=== PATIENT | male | born 1950 | race Caucasian/White ===

== ENCOUNTER 2023-07-14 06:23 | Day surgery (SDC) | payer OTHER, SELFPAY ==
[2023-06-28 08:59] LABS: Hematocrit 38.5 % (39.0-52.0); Mean Corp Hgb Conc. 31.2 g/dL (33.0-37.0); Mean Corpuscular Hgb 25.2 pg (27.0-31.0); Mean Corpuscular Volume 80.7 fL (80.0-94.0); Platelet Count 194 10^3/uL (130-400); Red Blood Cell Count 4.77 10^6/uL (4.70-6.10); Red Cell Dist. Width 15.9 % (11.5-14.5); White Blood Cell Count 7.4 10^3/uL (4.8-10.8)
[2023-06-28 09:46] VITALS: BMI 36.6
[2023-06-28 10:01] LABS: Blood Urea Nitrogen 20 mg/dl (9-20); Calcium 8.6 mg/dl (8.4-10.2); Carbon Dioxide 27 mmol/L (22-30); Chloride 102 mmol/L (98-107); Estimated Creatinine Clearance 84 ml/min; Glucose 124 mg/dl (70-99); Potassium 3.9 mmol/L (3.5-5.1); Sodium 138 mmol/L (135-145); eGFR > 60.00
--- NOTE | 2023-07-01 12:22 | CM ---
Patient is scheduled for a laparoscopic repair paraesophageal hernia with fundoplication on 07/14/23. Spoke with patient prior to surgery via telephone to complete case management assessment and assess for discharge planning needs. Patient reports
that he lives with his in a two story home. There are no steps to enter and a flight of steps to the second floor. There is a powder room on the first floor. He currently functions independently and works director multimedia. He has no DME and has never
had VN services. He has a prescription plan and uses [facility] in [place].
He is in the process of changing PCPs.
Discussed discharge plans. Patient plans to return home at discharge. He states that he will have support from his when he goes home. He has no discharge planning concerns at this time.
[2023-07-14] VITALS (13 sets, daily range): BP systolic 107–134; BP diastolic 76–92; BMI 36.6
[2023-07-14] MEDS: TYLENOL 1000 MG PO (08:20)
[2023-07-14] MEDS: NORMOSOL-R 1000 IV ×2 (08:21→14:41)
--- NOTE | 2023-07-14 13:38 | W.IMMPOSTOP ---
Surgical Immed Post Op Note
-
Primary Surgeon: Gladis
Assisting Surgeon: ARIEL Copeland
Pre-op Diagnosis: Paraesophageal hernia
Post-op Diagnosis: Paraesophageal hernia
Procedure Performed: Laparoscopic PEH repair with fundoplication and EGD
Anesthesia Type: General
Specimen / Cultures: None
Estimated Blood Loss: 11 cc
Complications: None
Operative Findings:
1. Large type III hernia containing 80% of stomach
2. > 3 cm esophageal mobilization
3. Posterior crural closure with 0 silk x3
4. Loose floppy 2 cm Toupet fundoplication over 56 Fr Bougie
5. Bl vagi identified, no pleural violation
[2023-07-14] MEDS: OFIRMEV 100 IV ×2 (15:15→22:24)
--- NOTE | 2023-07-14 16:08 | PTCARENOTE ---
Patient received from PACU in bed; IVF infusing; Surgical site assessed with [employer]TER[employer] MEDICINE PRACTITIONER; Patient and spouse oriented to room and unit; Bed in lowest position, wheels locked; Call [place] within reach; Assessment ongoing
[2023-07-14] MEDS: LOPRESSOR 5 MG IV (19:54)
[2023-07-15] MEDS: LOPRESSOR 5 MG IV ×2 (00:11→04:11)
[2023-07-15] MEDS: NORMOSOL-R 1000 IV ×2 (01:15→10:06)
[2023-07-15] MEDS: NORMOSOL-R IV (01:22)
[2023-07-15 03:15] VITALS: BP 111/70
[2023-07-15] MEDS: OFIRMEV 100 IV ×2 (04:29→10:05)
[2023-07-15 06:37] LABS: Hematocrit 34.9 % (39.0-52.0); Hemoglobin 10.9 g/dL (13.0-18.0); Mean Corp Hgb Conc. 31.2 g/dL (33.0-37.0); Mean Corpuscular Hgb 25.6 pg (27.0-31.0); Mean Corpuscular Volume 81.9 fL (80.0-94.0); Mean Platelet Volume 11.6 fL (7.4-10.4); Platelet Count 173 10^3/uL (130-400); Red Blood Cell Count 4.26 10^6/uL (4.70-6.10); Red Cell Dist. Width 16.2 % (11.5-14.5); White Blood Cell Count 7.4 10^3/uL (4.8-10.8)
[2023-07-15 07:08] LABS: Blood Urea Nitrogen 17 mg/dl (9-20); Carbon Dioxide 27 mmol/L (22-30); Chloride 102 mmol/L (98-107); Estimated Creatinine Clearance 105 ml/min; Glucose 114 mg/dl (70-99); Potassium 4.2 mmol/L (3.5-5.1); Sodium 135 mmol/L (135-145); eGFR > 60.00
[2023-07-15 07:35] VITALS: BP 103/57
--- NOTE | 2023-07-15 08:34 | W.PN.GS2 ---
Today's Communication / Plan
-
-- Clears, ADAT to soft diet
-- Pain control: Tylenol, Toradol, Oxycodone, IV Dilaudid PRN
-- Maintain IVF for now given limited PO intake
-- Home Dilt (short acting), statin and anti-HTN medications ordered
-- Lovenox for DVT, hold home Xarelto for 72 hours post-op
-- DC pending dietary progression throughout the day
Assessment / Plan
-
Patient is a 73 yo M POD#1 s/p laparoscopic paraesophageal hernia repair with Toupet fundoplication and intraoperative EGD
Recovering well. No postoperative concerns.
-- Clears, ADAT to soft diet
-- Pain control: Tylenol, Toradol, Oxycodone, IV Dilaudid PRN
-- Maintain IVF for now given limited PO intake
-- Home Dilt (short acting), statin and anti-HTN medications ordered
-- OOB/ambulate
-- Lovenox for DVT
-- DC pending dietary progression throughout the day
Subjective Data
-
Date of Service: July 15, 2023
No complaints. Pain well controlled. No nausea or emesis. No reflux or dysphagia. No dizziness or lightheadedness. No fevers.
Objective Data
-
Intake and Output
07/14/23 07/15/23 07/16/23
06:59 06:59 06:59
Intake Total 580 / 580
Output Total 250 / 250
Balance 330 / 330
Intake:
IV fluids (Total) 380 / 380
Normosol 160 / 160
Offirmev 100 / 100
IV piggybacks 200 / 200
Output:
Urine, Dickinson 250 / 250
Other:
Number of approximated MODERATE 1
amounts of urine
Vital Signs
Temp Pulse Resp BP Pulse Ox
98.5 F 87 17 103/57 97
07/15/23 07:35 07/15/23 07:35 07/15/23 07:35 07/15/23 07:35 07/15/23 07:35
Lab Results
07/15/23 05:21
07/15/23 05:21
Calcium 8.0 mg/dl (8.4-10.2) L 07/15/23 05:21
Physical Exam
-
Gen: NAD
Abd: soft, NT, ND, incisions c/d/i - no erythema or drainage, mild ecchymosis developing at L lateral site
[2023-07-15] MEDS: LOPRESSOR IV ×2 (10:04→12:44)
[2023-07-15] MEDS: CARDIZEM 60 MG PO (10:04)
[2023-07-15 11:15] VITALS: BP 98/62
[2023-07-15 15:10] VITALS: BP 96/66
--- NOTE | 2023-07-15 16:31 | W.PN.SURGUPD ---
Surgical Update
Surgical Update
Tolerated liquid diet. Plans to order a soft food diet this evening. No nausea, vomiting, or dysphagia. No dizziness or lightheadedness. Making adequate urine. No chest pain or shortness of breath.
Patient stable and cleared for discharge pending tolerance of soft food diet. DC instructions finalized.
[2023-07-15] MEDS: CARDIZEM PO (16:34)
[2023-07-15 19:44] LABS: Hepatitis C Antibody Negative (Negative)
== END 2023-07-15 18:35 | disposition home or self-care (01) ==
LOC: SDS 06:23
PROVIDERS: ATTENDING PHYSICIAN Surgery; OTHER PHYSICIAN Internal Medicine; OTHER PHYSICIAN Internal Medicine Cardiovascular Disease
DX: K44.9 Diaphragmatic hernia without obstruction or gangrene (principal)
CPT/HCPCS: 43281; 43235; 36415; 71046; 80048; 85027; 86803

== ENCOUNTER → 2023-11-30 16:04 | Outpatient (REF) | payer OTHER, SELFPAY | LOC: HWRAD 16:04 | PROVIDERS: ATTENDING PHYSICIAN Nurse Practitioner | DX: R05.1 Acute cough (principal) | CPT/HCPCS: 71046 ==

== ENCOUNTER → 2023-12-03 08:31 | Outpatient (REF) | payer OTHER, SELFPAY | LOC: HWRAD 08:31 | PROVIDERS: ATTENDING PHYSICIAN Nurse Practitioner | DX: R91.1 Solitary pulmonary nodule (principal) | CPT/HCPCS: 71260; Q9967 ==

== ENCOUNTER → 2023-12-24 09:55 | Outpatient (REF) | payer OTHER, SELFPAY | LOC: HWRAD 09:55 | PROVIDERS: ATTENDING PHYSICIAN Family Medicine | DX: C91.10 Chronic lymphocytic leukemia of B-cell type not having achieved remission (principal) | CPT/HCPCS: 71046 ==

== ENCOUNTER 2024-09-29 07:15 | Outpatient (RCR) | payer OTHER, SELFPAY | END 2024-09-29 23:59 | disposition home or self-care (01) | LOC: RPT 07:15 | PROVIDERS: ATTENDING PHYSICIAN Podiatrist Foot & Ankle Surgery; FAMILY PHYSICIAN Internal Medicine | DX: I89.0 Lymphedema, not elsewhere classified (principal); G62.0 Drug-induced polyneuropathy; R53.0 Neoplastic (malignant) related fatigue; R26.81 Unsteadiness on feet; Z73.6 Limitation of activities due to disability; M62.81 Muscle weakness (generalized); R29.3 Abnormal posture; C91.10 Chronic lymphocytic leukemia of B-cell type not having achieved remission | CPT/HCPCS: 97140; 97163; 97530 ==

== ENCOUNTER 2024-11-09 10:07 | Outpatient (RCR) | payer OTHER, SELFPAY | END 2024-11-09 23:59 | disposition home or self-care (01) | LOC: RPT 10:07 | PROVIDERS: ATTENDING PHYSICIAN Podiatrist Foot & Ankle Surgery; FAMILY PHYSICIAN Internal Medicine | DX: I89.0 Lymphedema, not elsewhere classified (principal); G62.0 Drug-induced polyneuropathy; R53.0 Neoplastic (malignant) related fatigue; R26.81 Unsteadiness on feet; Z73.6 Limitation of activities due to disability; M62.81 Muscle weakness (generalized); R29.3 Abnormal posture; C91.10 Chronic lymphocytic leukemia of B-cell type not having achieved remission | CPT/HCPCS: 97110; 97112; 97140; 97530 ==

== ENCOUNTER 2024-12-07 15:04 | Outpatient (RCR) | payer OTHER, SELFPAY | END 2024-12-07 23:59 | disposition home or self-care (01) | LOC: RPT 15:04 | PROVIDERS: ATTENDING PHYSICIAN Podiatrist Foot & Ankle Surgery; FAMILY PHYSICIAN Internal Medicine | DX: I89.0 Lymphedema, not elsewhere classified (principal); G62.0 Drug-induced polyneuropathy; R53.0 Neoplastic (malignant) related fatigue; R26.81 Unsteadiness on feet; Z73.6 Limitation of activities due to disability; M62.81 Muscle weakness (generalized); R29.3 Abnormal posture; C91.10 Chronic lymphocytic leukemia of B-cell type not having achieved remission | CPT/HCPCS: 97110; 97112; 97530 ==

== ENCOUNTER 2025-01-05 13:29 | Outpatient (RCR) | payer OTHER, SELFPAY | END 2025-01-05 23:59 | disposition home or self-care (01) | LOC: RPT 13:29 | PROVIDERS: ATTENDING PHYSICIAN Podiatrist Foot & Ankle Surgery; FAMILY PHYSICIAN Internal Medicine | DX: I89.0 Lymphedema, not elsewhere classified (principal); G62.0 Drug-induced polyneuropathy; R53.0 Neoplastic (malignant) related fatigue; R26.81 Unsteadiness on feet; Z73.6 Limitation of activities due to disability; M62.81 Muscle weakness (generalized); R29.3 Abnormal posture; C91.10 Chronic lymphocytic leukemia of B-cell type not having achieved remission | CPT/HCPCS: 97110; 97112; 97530 ==

== ENCOUNTER 2025-01-25 07:20 | Outpatient (RCR) | payer OTHER, SELFPAY | END 2025-01-25 23:59 | disposition home or self-care (01) | LOC: RPT 07:20 | PROVIDERS: ATTENDING PHYSICIAN Podiatrist Foot & Ankle Surgery; FAMILY PHYSICIAN Internal Medicine | DX: I89.0 Lymphedema, not elsewhere classified (principal); G62.0 Drug-induced polyneuropathy; R53.0 Neoplastic (malignant) related fatigue; R26.81 Unsteadiness on feet; Z73.6 Limitation of activities due to disability; M62.81 Muscle weakness (generalized); R29.3 Abnormal posture; C91.10 Chronic lymphocytic leukemia of B-cell type not having achieved remission | CPT/HCPCS: 97110; 97112; 97530 ==

== ENCOUNTER 2025-04-06 13:35 | Outpatient (RCR) | payer OTHER, SELFPAY | END 2025-04-09 07:14 | disposition home or self-care (01) | LOC: RPT 13:35 | PROVIDERS: ATTENDING PHYSICIAN Podiatrist Foot & Ankle Surgery; FAMILY PHYSICIAN Internal Medicine | DX: I89.0 Lymphedema, not elsewhere classified (principal); G62.0 Drug-induced polyneuropathy; R53.0 Neoplastic (malignant) related fatigue; R26.81 Unsteadiness on feet; Z73.6 Limitation of activities due to disability; R29.3 Abnormal posture; M62.81 Muscle weakness (generalized); C91.10 Chronic lymphocytic leukemia of B-cell type not having achieved remission | CPT/HCPCS: 97112; 97530 ==